=== PATIENT | male | born 1985 | race Caucasian/White ===

== ENCOUNTER 2021-10-22 18:41 | Emergency (ER) | payer OTHER, MEDICAID ==
[~2021-10-22] VITALS: Ht 167.6 cm; Wt 85.0 kg
[2021-10-22 18:48] VITALS: BP 131/87
[2021-10-22 23:33] LABS: BASOPHILS % 0.4 % (0.0-2.0); EOSINOPHILS % 0.5 % (0.0-5.0); HEMATOCRIT. 39.2 % (42.0-52.0); HEMOGLOBIN. 13.1 g/dL (14.0-18.0); LYMPHOCYTES % 20.6 % (20.0-50.0); MEAN CORPUSCULAR VOLUME 86.6 fL (80.0-94.0); MONOCYTES % 7.9 % (2.0-8.0); NEUTROPHILS % 70.6 % (40.0-76.0); PLATELET 266 x1000/uL (130-400); RED BLOOD CELL COUNT 4.52 mill/uL (4.7-6.1); RED CELL DISTRIBUTION WIDTH 13.6 % (11.6-14.6)
[2021-10-22] MEDS ORDERED: POLY119P2 MT (23:45)
== END 2021-10-23 00:07 | disposition home or self-care (01) ==
LOC: ER 18:41
DX: K59.00 Constipation, unspecified (principal); K62.5 Hemorrhage of anus and rectum; D64.9 Anemia, unspecified
CPT/HCPCS: 36415; 85025; 99283

== ENCOUNTER 2021-11-02 08:30 | Emergency (ER) | payer MEDICAID, OTHER ==
[~2021-11-02] VITALS: Ht 167.6 cm; Wt 66.0 kg
[~2021-11-02 08:30] MED LIST: POLY119P2 MT
[2021-11-02] MEDS ORDERED: CEFTRIAXONE SODIUM 500 MG/VIAL IM ONE (09:30)
[2021-11-02] MEDS ORDERED: LIDOCAINE HCL 1% 20ML VIAL (Pyxis) INJ INFIL ONE (09:30)
[2021-11-02] MEDS ORDERED: DOXY100C5 MT (10:37)
[2021-11-02 11:00] VITALS: BP 118/76
[2021-11-04 05:09] LABS: HIV 1 ABS Reactive (Non Reactive); HIV 2 ABS Non Reactive (Non Reactive); HIV SCREEN 4G Preliminary Reactive (Non Reactive); INTERPRETATION HIV-1 Positive (.)
== END 2021-11-02 11:02 | disposition home or self-care (01) ==
LOC: ER 08:30
DX: A64 Unspecified sexually transmitted disease (principal)
CPT/HCPCS: 86592; 86701; 86702; 87389; 96372; 99283; J0696; J3490